=== PATIENT | female | born 1955 | race Caucasian/White ===

== ENCOUNTER 2019-12-08 12:43 | Outpatient (CLI) | payer MEDICARE ==
[2019-12-08] MEDS ORDERED: VITAMIN C500 M1 ORAL (15:51)
[2019-12-08] MEDS ORDERED: FIBER500 MG PO (15:51)
--- NOTE | 2019-12-09 02:14 | Consultation ---
DATE OF CONSULTATION: 12/08/2019 CHIEF COMPLAINT: Abdominal bloating. HISTORY OF PRESENT ILLNESS: This is a very pleasant 64-year-old female without any significant past medical history presented to the office complaining of severe abdominal bloating. PAST MEDICAL HISTORY: Hemorrhoids. PAST SURGICAL HISTORY: Hemorrhoidectomy. MEDICATIONS: Vitamin C and . FAMILY HISTORY: Sister had a cancer at age 26, she . We do not know source of cancer. SOCIAL HISTORY: The patient denies any tobacco, alcohol, or drug abuse. ALLERGIES: No known drug allergies. REVIEW OF SYSTEMS: A 10-point review of systems was performed and positive for mostly constipation with some periods of diarrhea, bloating. PHYSICAL EXAMINATION: GENERAL: This is a well-developed female, in no acute distress. HEENT: Normocephalic and atraumatic. Sclerae anicteric. NECK: Supple. No evidence of obvious lymphadenopathy. CARDIOVASCULAR: Rhythm rate and rhythm. Plus S1 and S2. LUNGS: Clear to auscultation bilaterally. ABDOMEN: Positive bowel sounds. Soft and nontender. No rebound. No guarding. No peritoneal sign. EXTREMITIES: No cyanosis, no clubbing, no edema. ASSESSMENT AND PLAN: This is a 64-year-old female with abdominal bloating, sign and symptoms very highly suspicious for SIBO. The patient was given prescription for Xifaxan and after that is finished to follow with . In terms of colonoscopy according to the patient, she thinks that she had it three years ago, we do not have the records of it. At this time, the patient does not want to have an endoscopy and colonoscopy, wants to wait until COVID pandemic is better. The patient to come back in the office in three months for followup. Armando Warren M.D. DR: Tristan JOB#: [id number] CC:
== END 2019-12-08 14:43 | disposition home or self-care (01) ==
LOC: PAN 12:43
DX: R14.0 Abdominal distension (gaseous) (principal); Z80.9 Family history of malignant neoplasm, unspecified; K59.00 Constipation, unspecified
CPT/HCPCS: G0463